=== PATIENT | male | born 1960 | race Caucasian/White ===

== ENCOUNTER 2018-02-18 16:07 | Emergency (ER) | payer MEDICAID ==
[2018-02-18] MEDS ORDERED: Albuterol-Ipratrop 3 mg / 0.5 (3 ml) UD IH STA (16:34)
[2018-02-18 16:37] VITALS: O2SAT 99; BMI 24.2
--- NOTE | 2018-02-18 16:37 | ED PDOC ---
Arrival/HPI - General Chief Complaint: Rib Injury Time Seen by Provider: 02/18/18 16:24 Historian: Patient, Family - History of Present Illness Time/Duration: Other (3 days) Symptom Onset: Gradual Symptom Course: Worsening Severity Level: Moderate Activities at Onset: Rest Associated Symptoms (Text): 02/18/18 16:35 Patient complains of a three-day history of a cough congestion and URI. Yellow sputum production. No dyspnea. No chest pain. No fever or chills. He had a severe coughing fit today and developed acute onset of severe right lateral lower rib pain. No abdominal pain nausea or vomiting. He is a heavy smoker. Past Medical History - Infectious Disease Hx of Infectious Diseases: None - Tetanus Immunization Tetanus Immunization: Unknown - Past Medical History Past Medical History: No Previous - Cardiac Hx Cardiac Disorders: Yes Hx Hypertension: Yes - Pulmonary Hx Respiratory Disorders: Yes Hx Chronic Obstructive Pulmonary Disease (COPD): Yes Hx Emphysema: Yes - Neurological Hx Neurological Disorder: No - HEENT Hx HEENT Disorder: No - Renal Hx Renal Disorder: No - Endocrine/Metabolic Hx Endocrine Disorders: No - Hematological/Oncological Hx Blood Disorders: No - Integumentary Hx Dermatological Disorder: No - Musculoskeletal/Rheumatological Hx Musculoskeletal Disorders: No - Gastrointestinal Hx Gastrointestinal Disorders: No - Genitourinary/Gynecological Hx Genitourinary Disorders: No - Psychiatric Hx Psychophysiologic Disorder: No Hx Substance Use: No - Past Surgical History Past Surgical History: No Previous - Anesthesia Hx Anesthesia: No Hx Anesthesia Reactions: No Hx Malignant Hyperthermia: No - Suicidal Assessment Feels Threatened In Home Enviroment: No Family/Social History - Physician Review Nursing Documentation Reviewed: Yes Family/Social History: Unknown Family HX Smoking Status: Heavy Smoker > 10 Cigarettes Daily Hx Alcohol Use: No Hx Substance Use: No Hx Substance Use Treatment: No Allergies/Home Meds Allergies/Adverse Reactions: Allergies No Known Allergies Allergy (Verified 08/15/16 08:40) Home Medications: Home Meds Medication Instructions Recorded Confirmed Montelukast [Singulair] 10 mg PO DAILY 12/01/14 02/18/18 amLODIPine [Norvasc] 10 mg PO DAILY 12/01/14 02/18/18 Review of Systems - Physician Review All systems were reviewed & negative as marked: Yes - Review of Systems Constitutional: absent: Fatigue, Fevers Respiratory: Cough, Sputum, Wheezing. absent: SOB Cardiovascular: Chest Pain. absent: Palpitations, Syncope Gastrointestinal: absent: Abdominal Pain, Nausea, Vomiting Neurological: absent: Headache, Dizziness, Focal Weakness Physical Exam Vital Signs Temp Pulse Resp BP Pulse Ox 02/18/18 17:57 98 F 83 22 140/90 99 02/18/18 17:54 98 F 83 18 140/90 99 02/18/18 16:07 98.2 F 80 20 159/98 H 99 Temperature: Afebrile Blood Pressure: Hypertensive Pulse: Regular Respiratory Rate: Normal Appearance: Positive for: Well-Appearing, Non-Toxic, Uncomfortable Pain Distress: Moderate Mental Status: Positive for: Alert and Oriented X 3 - Systems Exam Head: Present: Atraumatic, Normocephalic Pupils: Present: PERRL Extroacular Muscles: Present: EOMI Conjunctiva: Present: Normal Ears: Present: NORMAL TM, Normal Canal. No: Erythema, TM Bulging Mouth: Present: Moist Mucous Membranes, Other (Poor dentition throughout) Pharnyx: No: ERYTHEMA, EXUDATE, TONSILS ENLARGED Neck: Present: Normal Range of Motion Respiratory/Chest: Present: Decreased Breath Sounds, Rhonchi, Tender to Palpation (Point tenderness right lateral posterior lower ribs). No: Respiratory Distress, Accessory Muscle Use, Wheezes, Rales, Retracting, Tachypneic Abdomen: No: Tenderness, Distention, Peritoneal Signs, Rebound, Guarding Neurological: Present: GCS=15, CN II-XII Intact, Speech Normal Skin: Present: Warm, Dry, Normal Color. No: Rashes Psychiatric: Present: Alert, Oriented x 3, Normal Insight, Normal Concentration Medical Decision Making ED Course and Treatment: 02/18/2018 17:21 Ribs X-ray IMPRESSION: Unremarkable radiographs of the chest and right ribs. No right rib fracture. Dictator: Negrito Garcia MD - RAD Interpretation Radiology Orders: 02/18/18 16:34 RIBS RIGHT & PA CHEST [RAD] Stat Right ribs and chest one view as read by the radiologist show no infiltrate effusion cardiomegaly pneumothorax fracture or dislocation. Promotions Director: Radiologist - Medication Orders Current Medication Orders: Discontinued Medications Albuterol/Ipratropium (Duoneb 3 Mg/0.5 Mg (3 Ml) Ud) 3 ml IH ONCE STA Stop: 02/18/18 16:35 Last Admin: 02/18/18 16:42 Dose: 3 ml Ketorolac Tromethamine (Toradol) 30 mg IM ONCE ONE Stop: 02/18/18 16:56 Last Admin: 02/18/18 17:01 Dose: 30 mg MAR Pain Assessment Document 02/18/18 17:01 SRE (Rec: 02/18/18 17:02 SRE [id number]) Pain Reassessment Is this a pain reassessment? Yes Sleep Is patient sleeping during reassessment? No Presence of Pain Presence of Pain Yes Pain Scale Used Pain Scale Used Numeric Location Left, Right or Bilateral Right Pain Location Body Site Chest Description Description Intermittent IM Administration Charges Document 02/18/18 17:01 SRE (Rec: 02/18/18 17:02 SRE [id number]) Charges for Administration # of IM Administrations 1 Disposition/Present on Arrival - Present on Arrival Any Indicators Present on Arrival: No History of DVT/PE: No History of Uncontrolled Diabetes: No Urinary Catheter: No History of Decub. Ulcer: No History Surgical Site Infection Following: None - Disposition Have Diagnosis and Disposition been Completed?: Yes Diagnosis: Asthmatic bronchitis, Strain of chest wall Disposition: HOME/ ROUTINE Disposition Time: 17:31 Patient Plan: Discharge Condition: GOOD Discharge Instructions (ExitCare): Costochondritis, Chronic Bronchitis, Acute Bronchitis Additional Instructions: Rest and ice. Symptomatic treatment. Follow-up with PMD. Hypertension check with PMD. Follow up in ER as needed. Prescriptions: Naproxen [Naprosyn] 500 mg PO BID #14 tab Benzonatate [Tessalon Perles] 100 mg PO Q8 #30 sgl Albuterol HFA [Ventolin HFA 90 mcg/actuation (8 g)] 2 puff IH [id number] #1 puff Azithromycin [Zithromax] 250 mg PO DAILY #6 tab Forms: [facility] (Hebrew), WORK NOTE
--- NOTE | 2018-02-18 17:23 | RAD ---
Date of service: 02/18/2018 PROCEDURE: Radiographs of the Chest and Right Ribs. HISTORY: pain COMPARISON: None available. TECHNIQUE: Frontal radiograph of the chest and multiple oblique radiographs of the right ribs were obtained. FINDINGS: RIGHT RIBS: No fracture or focal lesion visualized. LUNGS: Clear. PLEURA: No pneumothorax or pleural fluid. CARDIOVASCULAR: Normal sized heart. No pulmonary vascular congestion. OTHER FINDINGS: None. IMPRESSION: Unremarkable radiographs of the chest and right ribs. No right rib fracture.
[2018-02-18 17:55] VITALS: BP 140/90; PULSE 83; TEMP 98
[2018-02-18 17:58] VITALS: RESP 22
== END 2018-02-18 17:57 | disposition home or self-care (01) ==
LOC: ED 16:07
DX: S29.011A Strain of muscle and tendon of front wall of thorax, initial encounter (principal); X58.XXXA Exposure to other specified factors, initial encounter; J45.909 Unspecified asthma, uncomplicated; I10 Essential (primary) hypertension; F17.210 Nicotine dependence, cigarettes, uncomplicated
CPT/HCPCS: 71101; 96372; 99283; J1885

== ENCOUNTER 2018-03-20 23:58 | Emergency (ER) | payer MEDICAID ==
[2018-03-21 00:10] VITALS: BMI 24.2
[2018-03-21 00:19] VITALS: RESP 18; TEMP 97.6
--- NOTE | 2018-03-21 00:22 | ED PDOC ---
Arrival/HPI - General Time Seen by Provider: 03/21/18 00:09 Historian: Patient - History of Present Illness Narrative History of Present Illness (Text): 03/21/18 00:20 57 yo M w/ PMH of COPD presents c/o R anterior lower rib pain, worse with movement, palpation and deep breathing. States that he was seen in this ER a few weeks ago for similar pain, had XRs done and was Dx with muscle strain of the chest due to excessive coughing. States that the cough has improved by the pain persist and has ran out of Rx naprosyn. Denies any fever, chills, SOB, dyspnea, abdominal pain, N/V, back pain, trauma, injury, rash. Patient is a smoker. Past Medical History - Infectious Disease Hx of Infectious Diseases: None - Tetanus Immunization Tetanus Immunization: Unknown - Past Medical History Past Medical History: No Previous - Cardiac Hx Cardiac Disorders: Yes Hx Hypertension: Yes - Pulmonary Hx Respiratory Disorders: Yes Hx Chronic Obstructive Pulmonary Disease (COPD): Yes Hx Emphysema: Yes - Neurological Hx Neurological Disorder: No - HEENT Hx HEENT Disorder: No - Renal Hx Renal Disorder: No - Endocrine/Metabolic Hx Endocrine Disorders: No - Hematological/Oncological Hx Blood Disorders: No - Integumentary Hx Dermatological Disorder: No - Musculoskeletal/Rheumatological Hx Musculoskeletal Disorders: No - Gastrointestinal Hx Gastrointestinal Disorders: No - Genitourinary/Gynecological Hx Genitourinary Disorders: No - Psychiatric Hx Psychophysiologic Disorder: No Hx Substance Use: No - Past Surgical History Past Surgical History: No Previous - Anesthesia Hx Anesthesia: No Hx Anesthesia Reactions: No Hx Malignant Hyperthermia: No - Suicidal Assessment Feels Threatened In Home Enviroment: No Family/Social History Family/Social History: No Known Family HX Smoking Status: Heavy Smoker > 10 Cigarettes Daily Hx Alcohol Use: No Hx Substance Use: No Hx Substance Use Treatment: No Allergies/Home Meds Allergies/Adverse Reactions: Allergies No Known Allergies Allergy (Verified 03/21/18 00:09) Home Medications: Home Meds Medication Instructions Recorded Confirmed Montelukast [Singulair] 10 mg PO DAILY 12/01/14 02/18/18 amLODIPine [Norvasc] 10 mg PO DAILY 12/01/14 02/18/18 Review of Systems - Review of Systems Constitutional: absent: Fatigue, Fevers Respiratory: Cough. absent: SOB, Sputum Cardiovascular: Chest Pain. absent: Palpitations Gastrointestinal: absent: Abdominal Pain, Vomiting Genitourinary Male: absent: Dysuria, Frequency Musculoskeletal: absent: Arthralgias, Back Pain, Neck Pain Skin: absent: Rash, Pruritis, Skin Lesions Neurological: absent: Headache, Dizziness Physical Exam Vital Signs Temp Pulse Resp BP Pulse Ox 03/21/18 02:32 78 18 148/79 100 03/21/18 00:10 97.6 F 77 18 152/97 H 98 Temperature: Afebrile Blood Pressure: Hypertensive Pulse: Regular Respiratory Rate: Normal Appearance: Positive for: Well-Appearing, Non-Toxic, Comfortable Pain Distress: Moderate Mental Status: Positive for: Alert and Oriented X 3 - Systems Exam Head: Present: Atraumatic, Normocephalic Mouth: Present: Moist Mucous Membranes Neck: Present: Normal Range of Motion. No: MIDLINE TENDERNESS Respiratory/Chest: Present: Clear to Auscultation, Good Air Exchange, Tender to Palpation (to the R lower anterior ribs). No: Respiratory Distress, Accessory Muscle Use, Wheezes, Rales, Rhonchi Cardiovascular: Present: Regular Rate and Rhythm, Normal S1, S2. No: Murmurs Abdomen: No: Tenderness, Distention, Peritoneal Signs Back: Present: Normal Inspection. No: CVA Tenderness, Midline Tenderness Upper Extremity: Present: Normal Inspection. No: Cyanosis, Edema Lower Extremity: Present: Normal Inspection. No: Edema Neurological: Present: GCS=15, CN II-XII Intact, Speech Normal, Motor Func Grossly Intact, Normal Sensory Function Skin: Present: Warm, Dry, Normal Color. No: Rashes Psychiatric: Present: Alert, Oriented x 3, Normal Insight, Normal Concentration Medical Decision Making ED Course and Treatment: 03/21/18 00:19 Previous medical records reviewed : patient last seen in this ED on 02/18/18 for similar pain, had XRs of R ribs which are wnl as per radiology reading. Plan : - XR R ribs - Tramadol PO XR R ribs : +fracture of the 8th, ?9th frib fracture, old L rib fractures, no pneumothorax, as read by PA and ER MD. XR R ribs from 02/18/18 reviewed by PA and ER MD, there is noted ? fracture of the 9th rib. CT chest w/o contrast ordered to r/u multiple rib fractures. XR results d/w the patient. He states that the rib fractures on the L were sustained 7 years ago, also from coughing, without any trauma or injury. 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 chest FINDINGS: LUNGS: Clear lungs. Visualized airway clear. MEDIASTINUM: Unremarkable thoracic aorta. No aneurysm. Normal sized heart. Main pulmonary artery unremarkable. No vascular congestion. No lymphadenopathy. PLEURA: No pleural fluid. No pneumothorax. BONES: Displaced fractures are seen of the right posterior 8th and 9th ribs. UPPER ABDOMEN: Grossly unremarkable. OTHER FINDINGS: The report concurs with the preliminary [facility] report IMPRESSION: Displaced fractures of the right posterior 8th and 9th ribs. No pneumothorax CT results discussed with the patient. Advised to follow up with primary care physician in 1-2 days without fail. Advised to take medication as prescribed. Return to the emergency room at any time for any new or worsening symptoms. Patient states he fully agrees with and understands discharge instructions. States that he agrees with the plan and disposition. Verbalized and repeated discharge instructions and plan. I have given the patient opportunity to ask any additional questions. - RAD Interpretation Radiology Orders: 03/21/18 00:18 RIBS RIGHT & PA CHEST [RAD] Stat 03/21/18 01:23 CHEST W/O CONTRAST [CT] Stat - Medication Orders Current Medication Orders: Discontinued Medications Tramadol HCl (Ultram) 50 mg PO STAT STA Stop: 03/21/18 00:19 Last Admin: 03/21/18 00:29 Dose: 50 mg [facility] Pain Assessment Document 03/21/18 00:29 AD (Rec: 03/21/18 00:[address] [facility] [place] [id number]) Pain Reassessment Is this a pain reassessment? No Presence of Pain Presence of Pain Yes Pain Scale Used Pain Scale Used Numeric Location Left, Right or Bilateral Right Description Intensity of Pain at present 10 Pain Behavior Facial Grimacing - PA / [employer]LECT[employer]IC [employer]ALE [employer]SEM[employer]ER AND [employer]STER / Resident Statement MD/DO has reviewed & agrees with the documentation as recorded. Disposition/Present on Arrival - Present on Arrival Any Indicators Present on Arrival: No History of DVT/PE: No History of Uncontrolled Diabetes: No Urinary Catheter: No History of Decub. Ulcer: No History Surgical Site Infection Following: None - Disposition Have Diagnosis and Disposition been Completed?: Yes Diagnosis: Rib fractures Disposition: HOME/ ROUTINE Disposition Time: 02:30 Patient Plan: Discharge Condition: GOOD Discharge Instructions (ExitCare): How to Use an Incentive Spirometer, Rib Fracture (DC) Additional Instructions: TREY IVAN, thank you for letting us take care of you today. The emergency medical care you received today was directed at your acute symptoms. If you were prescribed any medication, please fill it and take as directed. It may take several days for your symptoms to resolve. Return to the Emergency Department if your symptoms worsen, do not improve, or if you have any other problems. Please contact your doctor or call one of the physicians/clinics you have been referred to that are listed on the Patient Visit Information form that is included in your discharge packet. Bring any paperwork you were given at discharge with you along with any medications you are taking to your follow up visit. Our treatment cannot replace ongoing medical care by a primary care provider outside of the emergency department. Thank you for allowing the [facility] team to be part of your care today. Follow up with your primary care doctor in 2-3 days for re-evaluation and further management. Prescriptions: traMADol [Ultram] 50 mg PO Q8 PRN #15 tab PRN Reason: Pain, Severe (8-10) Referrals: Ladonna Andre MD [Primary Care Provider] - Follow up with primary Forms: [employer] ([employer])
[2018-03-21 03:02] VITALS: BP 148/79; PULSE 78; O2SAT 100
--- NOTE | 2018-03-21 10:16 | CT ---
Date of service: 03/21/2018 PROCEDURE: CT Chest without contrast HISTORY: R rib pain, COMPARISON: None available. TECHNIQUE: Contiguous axial images were obtained through the chest without intravenous contrast enhancement. Sagittal and coronal reconstructions were performed. Radiation dose (DLP): 385 mGy-cm. This CT exam was performed using one or more of the following dose reduction techniques: Automated exposure control, adjustment of the mA and/or kV according to patient size, and/or use of iterative reconstruction technique. FINDINGS: LUNGS: Clear lungs. Visualized airway clear. MEDIASTINUM: Unremarkable thoracic aorta. No aneurysm. Normal sized heart. Main pulmonary artery unremarkable. No vascular congestion. No lymphadenopathy. PLEURA: No pleural fluid. No pneumothorax. BONES: Displaced fractures are seen of the right posterior 8th and 9th ribs. UPPER ABDOMEN: Grossly unremarkable. OTHER FINDINGS: The report concurs with the preliminary [facility] report IMPRESSION: Displaced fractures of the right posterior 8th and 9th ribs. No pneumothorax
--- NOTE | 2018-03-21 11:58 | RAD ---
Date of service: 03/21/2018 PROCEDURE: Chest and right ribs HISTORY: pain COMPARISON: 02/18/2018 TECHNIQUE: Frontal radiograph of the chest and multiple oblique radiographs of the right ribs were obtained. FINDINGS: RIGHT RIBS: Displaced posterior lateral right 8th rib fracture. Please note concurrent CT scan documents fractures of the 8th and 9th ribs. 9th rib fracture is not identified on the current study LUNGS: Clear. PLEURA: No pneumothorax or pleural fluid. CARDIOVASCULAR: Normal sized heart. No pulmonary vascular congestion. OTHER FINDINGS: None. IMPRESSION: Displaced posterior lateral right 8th rib fracture. This represents a new finding compared to the recent study 02/18/2018.
== END 2018-03-21 02:32 | disposition home or self-care (01) ==
LOC: ED 23:58
DX: S22.31XA Fracture of one rib, right side, initial encounter for closed fracture (principal); X58.XXXA Exposure to other specified factors, initial encounter; F17.210 Nicotine dependence, cigarettes, uncomplicated; I10 Essential (primary) hypertension; J44.9 Chronic obstructive pulmonary disease, unspecified

== ENCOUNTER 2018-08-06 09:12 | Outpatient (CLI) | payer MEDICAID | END 2018-08-06 09:13 | disposition home or self-care (01) | LOC: RAD 09:12 ==